=== PATIENT | male | born 1970 ===

== ENCOUNTER 2017-09-18 11:52 | Emergency (ER) | payer BC ==
--- NOTE | 2017-09-18 12:24 | ED PDOC ---
Arrival/HPI <Yvonne Barrientos - Last Filed: 09/18/17 12:57> <Trevin Cantu - Last Filed: 09/18/17 16:16> - General Chief Complaint: Syncope Time Seen by Provider: 09/18/17 11:58 - History of Present Illness Narrative History of Present Illness (Text): 47 year old with no medical history presents with syncope half an hour prior to presentation at ER. Patient looks well and not in distress. At 11:45 AM, patient was eating eggs, hash browns, and onion soup while sitting down, started to shake, and his eyes rolled back for 1.5 minutes. He did not loss control of bladder or bowels and he did not bite his tongue. His family helped transport him to the ground. He did not hit his head. He reports diaphoresis and dizziness prior to the episode. He reports tingling of his fingers after the episode. He had no aura or postictal episode. (Trevin Cantu) Past Medical History - Provider Review Nursing Documentation Reviewed: Yes - Psychiatric Hx Psychophysiologic Disorder: No Hx Substance Use: No <Trevin Cantu - Last Filed: 09/18/17 16:16> Family/Social History - Physician Review Nursing Documentation Reviewed: Yes Family/Social History: Diabetes Smoking Status: Never Smoked Hx Alcohol Use: Yes Frequency of alcohol use: Few days per week Hx Substance Use: No <Trevin Cantu - Last Filed: 09/18/17 16:16> Allergies/Home Meds <TiaraYvonne galindo - Last Filed: 09/18/17 12:57> <Trevin Cantu - Last Filed: 09/18/17 16:16> Allergies/Adverse Reactions: Allergies No Known Allergies Allergy (Verified 09/18/17 11:58) Home Medications: Home Meds Medication Instructions Recorded Confirmed No Known Home Med 09/18/17 09/18/17 Review of Systems - Physician Review All systems were reviewed & negative as marked: Yes - Review of Systems Constitutional: Normal Eyes: Normal ENT: Normal Respiratory: Normal Cardiovascular: Normal Gastrointestinal: Normal Genitourinary Male: Normal Musculoskeletal: Normal Skin: Normal Neurological: Dizziness, Other (tingling, syncope) Endocrine: Diaphoresis <Trevin Cantu - Last Filed: 09/18/17 16:16> Physical Exam <TiaraYvonne galindo Zahraa - Last Filed: 09/18/17 12:57> Vital Signs Reviewed: Yes Temperature: Afebrile Blood Pressure: Hypertensive Pulse: Regular Respiratory Rate: Normal Appearance: Positive for: Well-Appearing Pain Distress: None Mental Status: Positive for: Alert and Oriented X 3 Finger Stick Blood Glucose: 131 - Systems Exam Head: Present: Atraumatic Pupils: Present: PERRL Extroacular Muscles: Present: EOMI Conjunctiva: Present: Normal Nose (External): Present: Atraumatic Neck: Present: Normal Range of Motion Respiratory/Chest: Present: Clear to Auscultation Cardiovascular: Present: Regular Rate and Rhythm Abdomen: Present: Normal Bowel Sounds. No: Tenderness, Distention Upper Extremity: Present: Normal Inspection, Normal ROM, NORMAL PULSES Lower Extremity: Present: Normal Inspection, NORMAL PULSES, Normal ROM Neurological: Present: GCS=15, CN II-XII Intact, Speech Normal, Motor Func Grossly Intact (+5/5 bilaterally), Normal Sensory Function, Normal Cerebellar Funct (normal finger to nose test) Skin: Present: Warm, Dry, Normal Color Psychiatric: Present: Alert, Oriented x 3, Normal Insight, Normal Concentration <Trevin Cantu - Last Filed: 09/18/17 16:16> Vital Signs Temp Pulse Resp BP Pulse Ox 09/18/17 14:13 98 F 78 18 150/89 99 09/18/17 12:06 83 20 150/92 H 98 Medical Decision Making <Yvonne Barrientos Zahraa - Last Filed: 09/18/17 12:57> - Lab Interpretations I have reviewed the lab results: Yes - RAD Interpretation Violin Repairer: Radiologist - EKG Interpretation Interpreted by ED Physician: Yes <Trevin Cantu - Last Filed: 09/18/17 16:16> ED Course and Treatment: 09/18/17 12:56 47 year old male presents to the Emergency department complaining of diaphoresis , dizziness, and syncope. In agreement with resident note, which includes further HPI details. Patient was seen and evaluated with resident, came up with plan and treatment together. (Yvonne Barrientos) Impression: 47 year old male with past medical history presents with diaphoresis , dizziness, and syncope. Assessment: Syncope vs. seizure Rule out hyponatremia, hypothyroidism, uremia, liver failure, hypoglycemia, arrhythmia, brain tumor, intracranial bleed. Plan: CBC and CMP ordered to rule out anemia, hyponatremia, uremia, liver failure, hypoglycemia. EKG to rule out arrhythmias. CXR to rule out pneumonia. Urine analysis and culture to rule out UTI. Head CT to rule out brain tumor, intracranial bleed. 09/18/17 12:32 EKG: normal sinus rhythm Vent rate:91 NE: 162 QRS: 84 QT/QTc: 340/418 Doubt arrhythmia. 09/18/17 13:[address] is unremarkable. CBC, CMP, TSH are unremarkable. Patient can be discharged with close follow up (Trevin Cantu) - Lab Interpretations Lab Results: 09/18/17 12:30 09/18/17 12:30 Lab Results 09/18/17 12:30: TSH 3rd Generation 1.34 09/18/17 12:30: Sodium 143, Potassium 3.9, Chloride 105, Carbon Dioxide 22, Anion Gap 20, BUN 12, Creatinine 0.7 L, Est GFR ( Amer) > 60, Est GFR ( Non-Af Amer) > 60, Random Glucose 154 H, Calcium 8.9, Total Bilirubin 0.6, AST 31, ALT 46, Alkaline Phosphatase 83, Total Protein 7.8, Albumin 4.4, Globulin 3.4, Albumin/Globulin Ratio 1.3 09/18/17 12:30: WBC 5.6, RBC 5.05, Hgb 15.6, Hct 43.5, MCV 86.1, MCH 30.9, MCHC 35.9, RDW 12.9, Plt Count 225, MPV 9.4, Gran % 52.9, Lymph % (Auto) 38.0 H, [place] % (Auto) 6.5 H, Eos % (Auto) 2.2, Baso % (Auto) 0.4, Gran # 2.94, Lymph # ( Auto) 2.1, [place] # (Auto) 0.4, Eos # (Auto) 0.1, Baso # (Auto) 0.02 09/18/17 12:25: Urine Opiates Screen Negative, Urine Methadone Screen Negative, Ur Barbiturates Screen Negative, Ur Phencyclidine Scrn Negative, Ur Amphetamines Screen Negative, U Benzodiazepines Scrn Negative, U Oth Cocaine Metabols Negative, U Cannabinoids Screen Negative 09/18/17 12:25: Urine Color Yellow, Urine Appearance Clear, Urine pH 6.0, Ur Specific [place] 1.025, Urine Protein 100 H, Urine Glucose (UA) Negative, Urine Ketones Trace H, Urine Blood Negative, Urine Nitrate Negative, Urine Bilirubin Negative, Urine Urobilinogen 0.2, Ur Leukocyte Esterase Negative, Urine RBC Negative, Urine WBC 5 - 10, Ur Epithelial Cells 10 - 12 09/18/17 12:18: Lactate Dehydrogenase 561, Total Creatine Kinase 62, Troponin I < 0.01 - RAD Interpretation Radiology Orders: 09/18/17 12:18 CHEST PORTABLE [RAD] Stat 09/18/17 12:31 HEAD W/O CONTRAST [CT] Stat - PA / VINEYARDIST / Resident Statement / has reviewed & agrees with the documentation as recorded. MD/DO has examined the patient and agrees with the treatment plan. - Scribe Statement The provider has reviewed the documentation as recorded by the Scribe <Yvonne Barrientos - Last Filed: 09/18/17 12:57> - PA / VINEYARDIST / Resident Statement / has reviewed & agrees with the documentation as recorded. / has examined the patient and agrees with the treatment plan. <Trevin Cantu - Last Filed: 09/18/17 16:16> - Scribe Statement [employer] training under [facility] All medical record entries made by the Scribe were at my direction and personally dictated by me. I have reviewed the chart and agree that the record accurately reflects my personal performance of the history, physical exam, medical decision making, and the department course for this patient. I have also personally directed, reviewed, and agree with the discharge instructions and disposition. (Yvonne Barrientos) Disposition/Present on Arrival <Yvonne Barrientos - Last Filed: 09/18/17 12:57> - Present on Arrival Any Indicators Present on Arrival: No History of DVT/PE: No History of Uncontrolled Diabetes: No Urinary Catheter: No History of Decub. Ulcer: No History Surgical Site Infection Following: None - Disposition Have Diagnosis and Disposition been Completed?: Yes Disposition Time: 12:33 Patient Plan: Discharge <Hoskere,Dhanush - Last Filed: 09/18/17 16:16> - Disposition Diagnosis: Syncope Disposition: HOME/ ROUTINE Condition: STABLE Discharge Instructions (ExitCare): Syncope (Fainting), Syncope (ED) Additional Instructions: KEARA PETERS, thank you for letting us take care of you today. Your provider was Yvonne Barrientos MD and Trevin Cantu DO and you were treated for SYNCOPE. The emergency medical care you received today was directed at your acute symptoms. You were evaluated for syncope and seizure with blood counts, electrolyte levels, chest x ray, EKG, urine analysis, urine culture, and head CT. All of these tests came back within normal limits. Return to the Emergency Department if you have another episode of syncope, or if you have any other problems. Please contact your doctor, Dr. Bryan. Bring any paperwork you were given at discharge with you along with any medications you are taking to your follow up visit. Our treatment cannot replace ongoing medical care by a primary care provider outside of the emergency department. Thank you for allowing the [facility] team to be part of your care today. Referrals: [facility] Gabriela Diaz, [Primary Care Provider] - Follow up with primary Patti Bryan MD [Doctor Osteopathy] - Follow up with primary Forms: [employer] (Belarusian)
[2017-09-18 12:37] LABS: URINE APPEARANCE CLEAR (CLEAR); URINE BILIRUBIN NEGATIVE (NEGATIVE); URINE BLOOD NEGATIVE (NEGATIVE); URINE COLOR YELLOW (YELLOW); URINE GLUCOSE (UA) NEGATIVE (NEGATIVE); URINE LEUKOCYTE ESTERASE NEGATIVE Leu/uL (NEGATIVE); URINE PROTEIN 100 mg/dL (<30 mg/dL); URINE UROBILINOGEN 0.2 E.U./dL (<1 E.U./dL)
[2017-09-18 12:41] LABS: URINE RBC NEGATIVE /hpf (0-2)
[2017-09-18 12:54] LABS: BASO # 0.02 K/mm3 (0.0-2.0); BASO % 0.4 % (0.0-3.0); EOS # 0.1 (0.0-0.7); EOS % 2.2 % (1.5-5.0); GRAN # 2.94 (1.4-6.5); GRAN % 52.9 % (50.0-68.0); HEMOGLOBIN 15.6 g/dL (14.0-18.0); LYMPH # 2.1 (1.2-3.4); MEAN CELL VOLUME 86.1 fl (80.0-105.0); MEAN CORPUSCULAR HEMOGLOBIN 30.9 pg (25.0-35.0); MEAN CORPUSCULAR HGB CONC 35.9 g/dl (31.0-37.0); MEAN PLATELET VOLUME 9.4 fl (7.0-11.0); MONO # 0.4 (0.1-0.6); MONO % 6.5 % (1.0-6.0); RBC 5.05 10^6/uL (3.5-6.1); RED CELL DISTRIBUTION WIDTH 12.9 % (11.5-14.5); WHITE BLOOD COUNT 5.6 10^3/ul (4.5-11.0)
[2017-09-18 12:59] LABS: ALB/GLOB RATIO 1.3 (1.1-1.8); ALBUMIN 4.4 g/dL (3.0-4.8); CALCIUM 8.9 mg/dL (8.4-10.5); GFR AFRICAN-AMERICAN > 60; GFR NON-AFRICAN AMERICAN > 60
[2017-09-18 13:03] LABS: BARBITURATES, UR NEGATIVE (NEGATIVE); BENZODIAZEPINES, UR NEGATIVE (NEGATIVE); OPIATES, UR NEGATIVE (NEGATIVE); PHENCYCLIDINE, UR NEGATIVE (NEGATIVE)
[2017-09-18 13:03] LABS: ALT/SGPT 46 U/L (7-56); AST/SGOT 31 U/L (17-59); BLOOD UREA NITROGEN 12 mg/dL (7-21)
[2017-09-18 13:23] LABS: TROPONIN I < 0.01 ng/mL
--- NOTE | 2017-09-18 13:47 | CT ---
Date of service: 09/18/2017 PROCEDURE: CT HEAD WITHOUT CONTRAST. HISTORY: syncope vs. seizure COMPARISON: None available. TECHNIQUE: Axial computed tomography images were obtained through the head/brain without intravenous contrast. Radiation dose: Total exam DLP = 1072.57 mGy-cm. This CT exam was performed using one or more of the following dose reduction techniques: Automated exposure control, adjustment of the mA and/or kV according to patient size, and/or use of iterative reconstruction technique. FINDINGS: HEMORRHAGE: No intracranial hemorrhage. BRAIN: Mann-white matter differentiation is preserved. There is no mass, mass effect or abnormal extra-axial fluid collection. There is no territorial infarction. The midline sagittal structures are normal. VENTRICLES: The ventricles are normal in size, shape and configuration. CALVARIUM: There is no calvarial fracture or extracranial soft tissue swelling. PARANASAL SINUSES: There is mild mucoperiosteal thickening in the left posterior ethmoid air cells. The remaining included paranasal sinuses are predominantly clear. MASTOID AIR CELLS: Predominantly clear. OTHER FINDINGS: A subcentimeter nodule in the right posterior occipital soft tissues likely represents a lymph node. IMPRESSION: No acute intracranial abnormality.
[2017-09-18 14:15] VITALS: BP 150/89; PULSE 78; RESP 18; TEMP 98; O2SAT 99
--- NOTE | 2017-09-18 14:19 | RAD ---
Date of service: 09/18/2017 HISTORY: r/o infiltrate COMPARISON: No prior. FINDINGS: LUNGS: The lungs are clear. PLEURA: No significant pleural effusion identified, no pneumothorax apparent. CARDIOVASCULAR: Normal. OSSEOUS STRUCTURES: No significant abnormalities. VISUALIZED UPPER ABDOMEN: Normal. OTHER FINDINGS: None. IMPRESSION: No active pulmonary disease.
--- NOTE | 2017-09-19 12:26 | CARD ---
APPROVED REPORT Date of service: 09/18/2017 EKG Measurement Heart [id number] <Conclusion> Normal sinus rhythm Cannot rule out Anterior infarct, age undetermined Abnormal ECG
== END 2017-09-18 14:15 | disposition home or self-care (01) ==
LOC: ED 11:52
DX: R55 Syncope and collapse (principal)
CPT/HCPCS: 70450; 71045; 80053; 81001; 82550; 83615; 84443; 84484; 85025; 87086; 93005; 99285; G0480